=== PATIENT | female | born 1975 | race Caucasian/White ===

== ENCOUNTER 2016-06-04 11:02 | Inpatient (IN) | payer MEDICAID, OTHER ==
[~2016-06-04] VITALS: Ht 172.7 cm; Wt 131.6 kg
[~2016-06-04 11:02] MED LIST: ALBU8HFA IH; ARIP5TAB9 PO; DIPH50 PO; HYD50 PO; INSLAN SQ; INSU100C14 SQ; LEVO150 PO; OXCA300T PO; PRAZ1 PO; PROM25 PO; SERT50TA12 PO
[2016-06-04 11:35] LABS: BASOPHILS % (AUTO) 0.1 % (0.0-2.0); EOSINOPHILS % (AUTO) 1.2 % (1.0-6.0); HEMATOCRIT 40.7 % (36-46); HEMOGLOBIN 13.1 g/dL (12.0-16.0); LYMPHOCYTES # (AUTO) 1.3 K/uL (1.0-4.8); LYMPHOCYTES % (AUTO) 15.2 % (22.0-44.0); MEAN CORPUSCULAR HEMOGLOBIN 27.1 pg (26.0-34.0); MEAN CORPUSCULAR HGB CONC 32.2 G/dL (31.0-37.0); MEAN CORPUSCULAR VOLUME 84 fL (80-100); MONOCYTES # (AUTO) 0.4 K/uL (0.1-1.0); MONOCYTES % (AUTO) 4.8 % (2.0-9.0); NEUTROPHILS # (AUTO) 6.8 K/uL (1.8-7.7); NEUTROPHILS % (AUTO) 78.7 % (40.0-70.0); PLATELET COUNT (AUTO) 320 K/uL (150-450); RED BLOOD CELL COUNT(AUTO) 4.85 MIL/uL (4.00-5.20); RED CELL DISTRIBUTION WIDTH 15.2 % (11.5-14.5); WHITE BLOOD COUNT (AUTO) 8.7 K/uL (4.5-11.0)
[2016-06-04 11:46] LABS: ANION GAP 10 mmol/L (8-16); CALCIUM, TOTAL 8.8 mg/dL (8.8-10.5); CARBON DIOXIDE 23 mmol/L (22-29); CHLORIDE 102 mmol/L (98-107); CREATININE 0.77 mg/dL (0.60-1.30); GLOMERULAR FILTR. RATE CALC > 60 mL/min (>60); SODIUM SERUM 135 mmol/L (136-145); UREA NITROGEN, BLOOD 7 mg/dL (7-18)
[2016-06-04 11:52] LABS: ALANINE AMINOTRANSFERASE 12 U/L (12-78); ALBUMIN 3.4 g/dL (3.4-5.0); ASPARTATE AMINOTRANSFERASE 19 U/L (15-37); BILIRUBIN,TOTAL 0.3 mg/dL (0.1-1.0); TOTAL PROTEIN, SERUM 7.3 g/dL (6.4-8.2)
[2016-06-04] MEDS ORDERED: DiphenhydrAMINE HCL 50 MG/ML VIAL IM ONE (13:45)
[2016-06-04] MEDS ORDERED: HALOPERIDOL LACTATE 5 MG/ML VIAL IM ONE (13:45)
[2016-06-04] MEDS ORDERED: LORazepam 2 MG/ML VIAL IM ONE (13:45)
[2016-06-04] MEDS ORDERED: HALOPERIDOL 5 MG TABLET PO PRN (15:00)
[2016-06-04] MEDS ORDERED: ZOLPIDEM TARTRATE 10 MG TABLET PO PRN (15:00)
[2016-06-04 18:42] VITALS: BP 121/76
[2016-06-05] MEDS ORDERED: ALBUTEROL SULFATE HFA 90 MCG/PUFF 8 GM INHALER IH PRN (07:30)
[2016-06-05] MEDS ORDERED: GLUCAGON,HUMAN RECOMBINANT 1 MG VIAL IM PRN (07:45)
[2016-06-05 08:00] VITALS: BP 113/55
[2016-06-05] MEDS: LORazepam 2 MG TABLET PO PRN (09:00)
[2016-06-05] MEDS: ARIPiprazole 5 MG TABLET PO SCH (09:30)
[2016-06-05] MEDS: SERTRALINE HCL 50 MG TABLET PO SCH (09:30)
[2016-06-05 11:21] LABS: GLUCOSE,POINT OF CARE 112 MG/DL (70-110)
[2016-06-05] MEDS: INSULIN ASPART 100 UNITS/ML SQ PRN (13:44)
[2016-06-05 16:59] VITALS: BP 118/61
[2016-06-05 17:27] LABS: GLUCOSE COMMENT 1 FASTING; GLUCOSE,POINT OF CARE 89 MG/DL (70-110)
[2016-06-05] MEDS ORDERED: OXcarbazepine 300 MG TABLET PO SCH (21:00)
[2016-06-05] MEDS: INSULIN DETEMIR 100 UNITS/ML SQ SCH (22:29)
[2016-06-05 22:32] LABS: GLUCOSE COMMENT 1 FASTING; GLUCOSE,POINT OF CARE 90 MG/DL (70-110)
[2016-06-06 05:47] LABS: GLUCOSE,POINT OF CARE 85 MG/DL (70-110)
[2016-06-06 05:54] VITALS: BP 110/68
[2016-06-06 07:14] LABS: CHOL/HDL RATIO 4.3 (3.9-5.7); THYROID STIMULATING HORMONE 0.67 uIU/mL (0.36-3.74)
[2016-06-06] MEDS: LEVOTHYROXINE SODIUM 150 MCG TABLET PO SCH (07:23)
[2016-06-06 07:49] LABS: HEMOGLOBIN A1C 5.5 % (4.5-6.2)
[2016-06-06 08:00] VITALS: BP 125/77
[2016-06-06] MEDS: ARIPiprazole 5 MG TABLET PO SCH (08:59)
[2016-06-06] MEDS: SERTRALINE HCL 50 MG TABLET PO SCH (09:00)
[2016-06-06] MEDS: GABAPENTIN 400 MG CAPSULE PO SCH ×3 (11:42→16:04)
[2016-06-06] MEDS: INSULIN ASPART 100 UNITS/ML SQ PRN (11:43)
[2016-06-06 11:47] LABS: GLUCOSE,POINT OF CARE 92 MG/DL (70-110)
[2016-06-06 16:32] VITALS: BP 128/74
[2016-06-06 16:37] LABS: GLUCOSE,POINT OF CARE 107 MG/DL (70-110)
[2016-06-06] MEDS: LORazepam 2 MG TABLET PO PRN (16:40)
[2016-06-06] MEDS: INSULIN DETEMIR 100 UNITS/ML SQ SCH (20:36)
[2016-06-06 20:42] LABS: GLUCOSE,POINT OF CARE 105 MG/DL (70-110)
[2016-06-07 06:00] VITALS: BP 145/94
[2016-06-07 06:07] LABS: GLUCOSE,POINT OF CARE 95 MG/DL (70-110)
[2016-06-07] MEDS: LEVOTHYROXINE SODIUM 150 MCG TABLET PO SCH (06:08)
[2016-06-07] MEDS: ARIPiprazole 5 MG TABLET PO SCH (08:35)
[2016-06-07] MEDS: SERTRALINE HCL 50 MG TABLET PO SCH (08:36)
[2016-06-07] MEDS: GABAPENTIN 400 MG CAPSULE PO SCH ×2 (08:36→12:12)
[2016-06-07 11:12] LABS: GLUCOSE,POINT OF CARE 103 MG/DL (70-110)
[2016-06-07 11:49] VITALS: BP 130/81
[2016-06-07] MEDS ORDERED: GABA-533 PO (14:54)
[2016-06-08 05:16] LABS: HEPATITIS Bs ANTIGEN SCREEN P Negative (Negative); HEPATITIS C AB SCREEN <0.1 s/co ratio (0.0-0.9)
== END 2016-06-07 16:16 | disposition home or self-care (01) | DRG 753 ==
LOC: EEVIPCON 11:02 → EMS 11:03 → 3EI 17:26
PROVIDERS: ADMIT Psychiatry & Neurology Child & Adolescent Psychiatry; ATTEND Psychiatry & Neurology Child & Adolescent Psychiatry
DX: F31.4 Bipolar disorder, current episode depressed, severe, without psychotic features (principal); R45.851 Suicidal ideations; Z68.41 Body mass index [BMI] 40.0-44.9, adult; G40.909 Epilepsy, unspecified, not intractable, without status epilepticus; E66.9 Obesity, unspecified; E11.9 Type 2 diabetes mellitus without complications; E03.9 Hypothyroidism, unspecified; F41.9 Anxiety disorder, unspecified; J45.909 Unspecified asthma, uncomplicated; F17.210 Nicotine dependence, cigarettes, uncomplicated; Z90.711 Acquired absence of uterus with remaining cervical stump; Z88.8 Allergy status to other drugs, medicaments and biological substances; Z91.040 Latex allergy status; Z79.899 Other long term (current) drug therapy; Z79.4 Long term (current) use of insulin; Z90.721 Acquired absence of ovaries, unilateral
CPT/HCPCS: 80074; 82306; 82607; 82746; 82962; 83036; 83735; 84439; 84443; 99285; 99406; G0480; J3535

== ENCOUNTER 2016-06-22 19:24 | Emergency (ER) | payer MEDICAID, OTHER ==
[~2016-06-22] VITALS: Ht 172.7 cm; Wt 130.0 kg
[~2016-06-22 19:24] MED LIST changes: -ALBU8HFA IH; -DIPH50 PO; +GABA-533 PO; -HYD50 PO; -INSU100C14 SQ; -OXCA300T PO; -PRAZ1 PO; -PROM25 PO
[2016-06-22 20:06] LABS: GLUCOSE,POINT OF CARE 114 MG/DL (70-110)
[2016-06-22] MEDS ORDERED: GABA-533 PO (20:14)
[2016-06-22 20:44] LABS: BASOPHILS # (AUTO) 0.08 K/uL (0.00-0.20); BASOPHILS % (AUTO) 0.8 % (0.0-2.0); EOSINOPHILS # (AUTO) 0.23 K/uL (0.00-0.70); EOSINOPHILS % (AUTO) 2.15 % (1.0-6.0); HEMATOCRIT 40.2 % (36-46); HEMOGLOBIN 13.3 g/dL (12.0-16.0); LYMPHOCYTES % (AUTO) 27.7 % (22.0-44.0); MEAN CORPUSCULAR HEMOGLOBIN 27.6 pg (26.0-34.0); MEAN CORPUSCULAR HGB CONC 33.1 G/dL (31.0-37.0); MEAN CORPUSCULAR VOLUME 83 fL (80-100); MONOCYTES # (AUTO) 0.7 K/uL (0.1-1.0); MONOCYTES % (AUTO) 6.5 % (2.0-9.0); NEUTROPHILS # (AUTO) 6.7 K/uL (1.8-7.7); NEUTROPHILS % (AUTO) 62.9 % (40.0-70.0); PLATELET COUNT (AUTO) 317 K/uL (150-450); RED BLOOD CELL COUNT(AUTO) 4.82 MIL/uL (4.00-5.20); RED CELL DISTRIBUTION WIDTH 15.5 % (11.5-14.5); WHITE BLOOD COUNT (AUTO) 10.7 K/uL (4.5-11.0)
[2016-06-22 20:46] LABS: APPEARANCE,URINE CLEAR (CLEAR); GLUCOSE, URINE (UA) NEGATIVE (NEGATIVE); KETONES,URINE NEGATIVE (NEGATIVE); LEUKOCYTE ESTERASE ,URINE TRACE (NEGATIVE); OCCULT BLOOD,URINE NEGATIVE (NEGATIVE); PROTEIN,URINE NEGATIVE (NEGATIVE)
[2016-06-22 20:48] LABS: ADD UA MICROSCOPIC YES
[2016-06-22 20:51] LABS: ANION GAP 10 mmol/L (8-16); CARBON DIOXIDE 25 mmol/L (22-29); CHLORIDE 105 mmol/L (98-107); CREATININE 0.89 mg/dL (0.60-1.30); GLOMERULAR FILTR. RATE CALC > 60 mL/min (>60); POTASSIUM 4.1 mmol/L (3.5-5.1); SODIUM SERUM 140 mmol/L (136-145); UREA NITROGEN, BLOOD 11 mg/dL (7-18)
[2016-06-22 20:57] LABS: ALANINE AMINOTRANSFERASE 18 U/L (12-78); ALBUMIN 3.5 g/dL (3.4-5.0); ASPARTATE AMINOTRANSFERASE 18 U/L (15-37); BILIRUBIN,TOTAL 0.2 mg/dL (0.1-1.0); TOTAL PROTEIN, SERUM 7.5 g/dL (6.4-8.2)
[2016-06-22 20:58] LABS: SQUAMOUS EPITHELIAL CELL,UR Moderate /LPF (None Seen)
[2016-06-22 20:59] LABS: RBC,URINE 0-2 /HPF (0-2)
[2016-06-23] MEDS: PHENYTOIN SODIUM 1,000 MG in SODIUM CHLORIDE 0.9% 150 ML IV ONE (00:48)
[2016-06-23 02:06] VITALS: BP 122/63
== END 2016-06-23 02:07 | disposition home or self-care (01) ==
LOC: EMS 19:25
DX: G40.909 Epilepsy, unspecified, not intractable, without status epilepticus (principal); E11.9 Type 2 diabetes mellitus without complications; J45.909 Unspecified asthma, uncomplicated; E03.9 Hypothyroidism, unspecified; F17.210 Nicotine dependence, cigarettes, uncomplicated; Z91.040 Latex allergy status; Z88.8 Allergy status to other drugs, medicaments and biological substances; Z79.4 Long term (current) use of insulin
CPT/HCPCS: 36415; 80053; 80307; 81001; 82962; 84703; 85025; 96365; 99284; G0480; J1165; J7050

== ENCOUNTER 2017-05-26 07:57 | Emergency (ER) | payer OTHER ==
[~2017-05-26] VITALS: Ht 172.7 cm; Wt 129.6 kg
[~2017-05-26 07:57] MED LIST changes: +ARIP5TAB8 PO; -ARIP5TAB9 PO
[2017-05-26 08:17] LABS: GLUCOSE,POINT OF CARE 87 MG/DL (70-110)
[2017-05-26] MEDS ORDERED: OXCA300T PO (08:19)
[2017-05-26] MEDS ORDERED: GABA-529 PO (08:19)
[2017-05-26] MEDS ORDERED: ACETAMINOPHEN 500 MG TABLET PO ONE (09:30)
[2017-05-26 11:10] VITALS: BP 151/96
== END 2017-05-26 11:44 | disposition home or self-care (01) ==
LOC: EMS 07:58
DX: S82.831G Other fracture of upper and lower end of right fibula, subsequent encounter for closed fracture with delayed healing (principal); E03.9 Hypothyroidism, unspecified; E11.9 Type 2 diabetes mellitus without complications; J45.909 Unspecified asthma, uncomplicated; Z91.19 Patient's noncompliance with other medical treatment and regimen; Z88.8 Allergy status to other drugs, medicaments and biological substances; Z91.040 Latex allergy status; Z79.4 Long term (current) use of insulin; X58.XXXD Exposure to other specified factors, subsequent encounter
CPT/HCPCS: 29515; 82962; 99284